=== PATIENT | male | born 1975 | race Two or more races ===

== ENCOUNTER 2022-12-27 15:31 | Inpatient (IN) | payer OTHER ==
[~2022-12-27] VITALS: Ht 170.2 cm; Wt 91.0 kg
[2022-12-27] MEDS ORDERED: ONDANSETRON HCL 4 MG/2 ML VIAL IV ONE (18:15)
[2022-12-27] MEDS ORDERED: SODIUM CHLORIDE 0.9% 500 ML IV ONE (18:15)
[2022-12-27 18:43] LABS: Basophils # (auto) 0.1 10 ^3/uL (0-0.2); Basophils % (auto) 1.6 % (0.0-2.0); Eosinophils # (auto) 0 10 ^3/uL (0-0.8); Hematocrit 42.9 % (41.0-53.0); Hemoglobin 14.6 g/dL (13.5-17.5); Lymphocytes # (auto) 0.8 10 ^3/uL (0.4-5.4); Mean Corpuscular Hemoglobin 29.3 pg (28.0-32.0); Mean Corpuscular Hgb Conc. 33.9 g/dL (32.0-36.0); Mean Corpuscular Volume 86.3 fL (80.0-100.0); Monocytes # (auto) 0.7 10 ^3/uL (0-1.3); Monocytes % (auto) 7.3 % (0.0-12.0); Neutrophils # (auto) 7.9 10 ^3/uL (1.6-8.6); Neutrophils % (auto) 83.1 % (37.0-80.0); Nucleated Red Blood Cells % 0.1 %; Red Blood Cells 4.97 10^6/uL (4.5-5.90); Red Cell Distribution Width 13.8 % (11.8-14.3); White Blood Cell 9.5 10^3/uL (4.4-10.8)
[2022-12-27] MEDS ORDERED: ACETAMINOPHEN 500 MG TAB PO ONE (19:00)
[2022-12-27 19:06] LABS: Albumin 2.8 g/dL (3.4-5.0); BUN/Creatinine Ratio 18.4 (10.0-20.0); Calcium 8.6 mg/dL (8.5-10.1); Potassium 3.8 mmol/L (3.5-5.1)
[2022-12-27 19:08] LABS: Bilirubin, Total 0.5 mg/dL (0.2-1.0); Total Protein 6.8 g/dL (6.4-8.2)
[2022-12-27] MEDS ORDERED: PIPERACILLIN-TAZOB 3.375GM 100 ML IV ONE (21:45)
[2022-12-27] MEDS ORDERED: VANCOMYCIN 1GM/250ML 250 ML IV ONE (21:45)
[2022-12-27] MEDS ORDERED: ONDANSETRON HCL 4 MG/2 ML VIAL IV PRN (22:15)
[2022-12-27] MEDS ORDERED: TEMAZEPAM 15 MG CAP PO PRN (22:15)
[2022-12-27] MEDS: ACETAMINOPHEN 325 MG TAB PO PRN (22:56)
[2022-12-28 01:12] LABS: Urine Bacteria NONE SEEN /hpf (None Seen); Urine Blood 1+ /uL (Negative); Urine Mucus FEW (None Seen); Urine Specific Gravity 1.023 (1.001-1.035); Urine WBC 7 /hpf (0 - 3)
[2022-12-28 05:00] VITALS: BP 138/76
[2022-12-28 06:00] LABS: Basophils # (auto) 0 10 ^3/uL (0-0.2); Basophils % (auto) 0.4 % (0.0-2.0); Eosinophils # (auto) 0 10 ^3/uL (0-0.8); Eosinophils % (auto) 0.1 % (0.0-7.0); Hematocrit 40.9 % (41.0-53.0); Hemoglobin 13.9 g/dL (13.5-17.5); Lymphocytes # (auto) 1.5 10 ^3/uL (0.4-5.4); Lymphocytes % (auto) 12.9 % (10.0-50.0); Mean Corpuscular Hemoglobin 29.5 pg (28.0-32.0); Mean Corpuscular Hgb Conc. 33.9 g/dL (32.0-36.0); Monocytes # (auto) 1.8 10 ^3/uL (0-1.3); Monocytes % (auto) 15.5 % (0.0-12.0); Neutrophils # (auto) 8.4 10 ^3/uL (1.6-8.6); Neutrophils % (auto) 71.1 % (37.0-80.0); Red Cell Distribution Width 13.5 % (11.8-14.3); White Blood Cell 11.8 10^3/uL (4.4-10.8)
[2022-12-28 06:09] LABS: BUN/Creatinine Ratio 15.2 (10.0-20.0); Calcium 8.8 mg/dL (8.5-10.1); Potassium 3.2 mmol/L (3.5-5.1)
[2022-12-28] MEDS: ACETAMINOPHEN 325 MG TAB PO PRN ×3 (06:40→19:42)
[2022-12-28] MEDS ORDERED: POTASSIUM CHL 20 Meq TABLET PO ONE (07:15)
[2022-12-28 08:00] VITALS: BP 119/61
[2022-12-28] MEDS: cefTRIAXone 1GM/50ML D5W 50 ML IV SCH (08:50)
[2022-12-28] MEDS ORDERED: PANTOPRAZOLE 40 MG TAB PO SCH (10:00)
[2022-12-28 12:30] VITALS: BP 151/94
[2022-12-28 16:40] VITALS: BP 115/77
[2022-12-28] MEDS ORDERED: VANCOMYCIN PER PHARMACY 0 MG IV SCH (17:30)
[2022-12-28] MEDS: VANCOMYCIN 1GM/250ML 250 ML IV SCH (17:44)
[2022-12-28 20:00] VITALS: BP 110/63
[2022-12-28 22:00] VITALS: BP 110/63
[2022-12-29] MEDS: VANCOMYCIN 1GM/250ML 250 ML IV SCH ×3 (01:56→20:20)
[2022-12-29] MEDS: ACETAMINOPHEN 325 MG TAB PO PRN (01:56)
[2022-12-29 05:00] VITALS: BP 108/72
[2022-12-29 05:06] LABS: Basophils # (auto) 0 10 ^3/uL (0-0.2); Basophils % (auto) 0.4 % (0.0-2.0); Eosinophils # (auto) 0 10 ^3/uL (0-0.8); Eosinophils % (auto) 0.2 % (0.0-7.0); Hematocrit 41.7 % (41.0-53.0); Hemoglobin 14.1 g/dL (13.5-17.5); Lymphocytes # (auto) 1.6 10 ^3/uL (0.4-5.4); Lymphocytes % (auto) 13.6 % (10.0-50.0); Mean Corpuscular Hemoglobin 29.7 pg (28.0-32.0); Mean Corpuscular Hgb Conc. 33.7 g/dL (32.0-36.0); Mean Corpuscular Volume 88.1 fL (80.0-100.0); Monocytes # (auto) 1.6 10 ^3/uL (0-1.3); Neutrophils # (auto) 8.7 10 ^3/uL (1.6-8.6); Neutrophils % (auto) 72.8 % (37.0-80.0); Red Blood Cells 4.73 10^6/uL (4.5-5.90); Red Cell Distribution Width 13.6 % (11.8-14.3)
[2022-12-29 05:24] LABS: Calcium 9.1 mg/dL (8.5-10.1); Potassium 3.6 mmol/L (3.5-5.1)
[2022-12-29 05:26] LABS: BUN/Creatinine Ratio 16.7 (10.0-20.0)
[2022-12-29 08:00] VITALS: BP 133/84
[2022-12-29] MEDS: IBUPROFEN 600 MG TAB PO PRN ×2 (10:19→20:17)
[2022-12-29] MEDS: cefTRIAXone 1GM/50ML D5W 50 ML IV SCH (10:26)
[2022-12-29 13:00] VITALS: BP 116/64
[2022-12-29 16:29] VITALS: BP 98/68
[2022-12-29 22:00] VITALS: BP 113/75
[2022-12-30] MEDS: ACETAMINOPHEN 325 MG TAB PO PRN (03:51)
[2022-12-30] MEDS: VANCOMYCIN 1GM/250ML 250 ML IV SCH ×2 (04:21→11:57)
[2022-12-30 05:00] VITALS: BP 124/82
[2022-12-30] MEDS: cefTRIAXone 1GM/50ML D5W 50 ML IV SCH (08:49)
[2022-12-30 09:00] VITALS: BP 103/60
[2022-12-30 13:00] VITALS: BP 117/70
[2022-12-30] MEDS: IBUPROFEN 600 MG TAB PO PRN (13:32)
[2022-12-30 16:00] VITALS: BP 114/68
[2022-12-30] MEDS: VANCOMYCIN 750mg/250ml 250 ML IV SCH (18:25)
[2022-12-30 22:00] VITALS: BP 120/78
[2022-12-31] MEDS: VANCOMYCIN 750mg/250ml 250 ML IV SCH ×4 (00:11→21:39)
[2022-12-31 05:00] VITALS: BP 114/76
[2022-12-31] MEDS: cefTRIAXone 1GM/50ML D5W 50 ML IV SCH (08:14)
[2022-12-31 09:00] VITALS: BP 105/62
[2022-12-31 13:00] VITALS: BP 111/70
[2022-12-31 17:04] VITALS: BP 114/74
[2022-12-31 22:00] VITALS: BP 113/72
[2023-01-01] MEDS: VANCOMYCIN 750mg/250ml 250 ML IV SCH ×3 (04:00→16:00)
[2023-01-01 05:00] VITALS: BP 117/80
[2023-01-01 09:00] VITALS: BP 110/72
[2023-01-01] MEDS: cefTRIAXone 1GM/50ML D5W 50 ML IV SCH (09:29)
[2023-01-01 13:00] VITALS: BP 108/73
== END 2023-01-01 18:22 | disposition home or self-care (01) | DRG 865 ==
LOC: ER 15:31 → OVERFLOW 22:12 → WEST WING 12-28 04:05
PROVIDERS: ADMIT Nurse Practitioner; ATTEND Internal Medicine
DX: B34.9 Viral infection, unspecified (principal); G93.41 Metabolic encephalopathy; R65.10 Systemic inflammatory response syndrome (SIRS) of non-infectious origin without acute organ dysfunction; Z20.822 Contact with and (suspected) exposure to COVID-19; I51.4 Myocarditis, unspecified; Z83.3 Family history of diabetes mellitus
CPT/HCPCS: 36415; 70450; 71045; 80048; 80053; 80202; 81001; 82565; 83605; 83690; 84484; 85025; 87040; 87426; 87804; 93306; G0378; J0696; J2405; J2543